=== PATIENT | female | born 1980 | race Caucasian/White ===

== ENCOUNTER 2019-10-13 23:57 | Emergency (ER) | payer BC, OTHER ==
[2019-10-14 00:18] VITALS: TEMP 98.4
--- NOTE | 2019-10-14 00:24 | ED.PDOC ---
History of Present Illness - General Chief Complaint: General Stated Complaint: coughed up blood clot x 1 Time Seen by Provider: 10/14/19 00:13 - History of Present Illness Initial Comments: 39 F no pmh EGA 17wks presents with spouse to ED c/o acute onset tonight of coughing up single blood clot. Pt states she is only concerned due to being . Denies h/o similar sx's. Denies any risk factors for PE/DVT with exce ption of : no h/o PE/DVT, no hormone use, no recent surgery/trauma, no recent long travel, no cancer or blood clotting disorders. Currently denies CP, SOB, f/c, n/v/d. Pt is otherwise healthy with no other signs, symptoms, or complaints. Allergies/Adverse Reactions: Allergies NO KNOWN ALLERGY Allergy (Verified 10/14/19 00:24) Home Medications: Ambulatory Orders Amoxicillin & Pot Clavulanate [Augmentin Tab] 875 mg PO BID #20 tab 10/14/19 Review of Systems - Review of Systems Constitutional: Denies: chills, fever EENTM: States: other - recent epistaxis but denies for past 1-2 days.. Denies: nose congestion, throat pain Respiratory: States: cough. Denies: short of breath, wheezing Cardiology: Denies: chest pain, palpitations, syncope Gastrointestinal/Abdominal: Denies: abdominal pain, diarrhea, nausea, vomiting Genitourinary: Denies: dysuria, frequency, hematuria Musculoskeletal: States: other - denies body aches. Denies: back pain Skin: Denies: change in color, rash Neurological: Denies: headache, tingling Hematologic/Lymphatic: Denies: blood clots Past Medical History (General) - Patient Medical History Hx Seizures: No Hx Stroke: No Hx Dementia: No Hx Asthma: No Hx of COPD: No Hx Cardiac Disorders: No Hx Congestive Heart Failure: No Hx Pacemaker: No Hx Hypertension: No Hx Thyroid Disease: No Hx Diabetes: No Hx Gastroesophageal Reflux: No Hx Renal Disease: No Hx Cancer: No Hx of HIV: No Hx Hepatitis C: No Hx MRSA: No Surgical History: tonsillectomy, other - Vaccination History Hx Tetanus, Diphtheria Vaccination: Yes Hx Influenza Vaccination: No Hx Pneumococcal Vaccination: No Immunizations Up to Date: Yes - Social History Hx Tobacco Use: No Hx Chewing Tobacco Use: No Hx Alcohol Use: No Hx Substance Use: No Hx Substance Use Treatment: No Hx Depression: No Feels Threatened In Home Enviroment: No Feels Threatened In a Relationship: No Hx Physical Abuse: No Hx Emotional Abuse: No Hx Suspected Abuse: No - Female History Patient is a Female of Child Bearing Age (10 -59 yrs old): Yes Patient : Yes - Triage Comment ED Triage Comment: aprox 17 weeks pg Family Medical History - Family History Mother Family History: Unknown Physical Exam - Physical Exam General Appearance: Alert, Comfortable, Well Developed, Well Nourished, Other - non-toxic Eye Exam: bilateral normal, bilateral other - PERRLA, conjunctiva nl, no scleral icterus Neck: full range of motion, supple, normal inspection Respiratory: lungs clear, normal breath sounds, no respiratory distress, no accessory muscle use Cardiovascular/Chest: normal peripheral pulses, regular rate, rhythm, no edema, no gallop, no JVD, no murmur Gastrointestinal/Abdominal: normal bowel sounds, non tender, soft, other - gravid abdomen Extremity: normal inspection, no pedal edema Neurologic: alert, normal mood/affect, oriented x 3 Skin Exam: normal color, warm/dry, other - no rash Progress - Progress Progress: Rodolfo Winters DO [facility] #[id number] Presents for coughing up blood clot with mild concern for bronchitis vs less likely pnuemonia. Low clinical concern for PE. No h/o PE/DVT and no other risk factors with exception to . I will perform labs, imaging, provide appropriate pharmacotherapy, and continue to monitor/reassess. Dispo will depend on lab results, imaging results, and overall course in ED; however, discharge home is expected with f/u, education, and possible rx. 01:35 Rechecked pt with family member at bedside. NAD, VSS, HR in 80's, and pt continues to feel great. I have discussed lab results, radiology results, my clinical impression, and diagnosis. I have also discussed plan for discharge home with f/u Manager Traffic in 1-5 days with calling in the morning, education, and antibiotic prescription I am prescribing. ED return precautions provided. Pt and family member voice understanding, agree with plan, and all questions answered. Pt given single dose of 875mg Augmentin tab PO x1 here in ED prior to d/c home with . - Results/Orders Results/Orders: Laboratory Tests 10/14/19 00:37 D-Dimer, Quantitative 320 EXAM DESCRIPTION: Chest,1 View CLINICAL HISTORY: 39 years Female hemoptysis, shield abdomen 17wks COMPARISON: None TECHNIQUE: AP view of the chest was obtained. FINDINGS: Cardiac size is within normal limits. Central vessels are not increased. Infrahilar airspace opacities bilaterally right greater than left. No effusions bilaterally. No pneumothorax. IMPRESSION: Infiltrate and atelectatic change infrahilar regions bilaterally right greater than left. Electronically signed by: Adrianna Manzo MD 10/14/2019 12:40 AM CDT Departure - Departure Clinical Impression: Second trimester , Pneumonia of mother during , Coughing up blood Time of Disposition: 01:28 Disposition: Discharge to Home or Self Care Condition: Excellent Departure Forms: ED Discharge - Pt. Copy, Patient Portal Self Enrollment Instructions: Pneumonia, Adult (DC), Nutrition Before and During , Medications and Referrals: Your, Manager Traffic [Other] - 1-5 Days (Call in the morning (10/14/2019) to setup close follow up appointment. Return to ED if cough progresses, blood in cough gets worse, you develope chest pain, inablity to keep antibiotic down, fever, and/or any other symptoms concerning to you.) Prescriptions: Amoxicillin & Pot Clavulanate [Augmentin Tab] 875 mg PO BID #20 tab Home Medications: Ambulatory Orders Amoxicillin & Pot Clavulanate [Augmentin Tab] 875 mg PO BID #20 tab 10/14/19 Comments: Rodolfo Winters DO [facility] #[id number]
--- NOTE | 2019-10-14 00:41 | RAD ---
EXAM DESCRIPTION: Chest,1 View CLINICAL HISTORY: 39 years Female hemoptysis, shield abdomen 17wks COMPARISON: None TECHNIQUE: AP view of the chest was obtained. FINDINGS: Cardiac size is within normal limits. Central vessels are not increased. Infrahilar airspace opacities bilaterally right greater than left. No effusions bilaterally. No pneumothorax. IMPRESSION: Infiltrate and atelectatic change infrahilar regions bilaterally right greater than left. Electronically signed by: Adrianna Manzo MD 10/14/2019 12:40 AM CDT
[2019-10-14] MEDS ORDERED: AMOXICILLIN & POT CLAVULANATE 875 MG TAB ONE (01:39)
[2019-10-14] MEDS ORDERED: AMOXICILLIN & POT CLAVULANATE 875 MG TAB PO ONE (01:40)
[2019-10-14 01:46] VITALS: BP 108/68; O2SAT 99
== END 2019-10-14 01:46 | disposition home or self-care (01) ==
LOC: ER 23:57
DX: O99.512 Diseases of the respiratory system complicating pregnancy, second trimester (principal); J18.9 Pneumonia, unspecified organism; R04.2 Hemoptysis; O09.522 Supervision of elderly multigravida, second trimester; Z3A.17 17 weeks gestation of pregnancy

== ENCOUNTER → 2020-04-13 | Outpatient (CLI) | payer OTHER ==
--- NOTE | 2020-04-14 14:06 | MRI ---
EXAM DESCRIPTION: Lumbar Spine w/wo Contrast: Magnetic Resonance Imaging. CLINICAL HISTORY: LOW BACK PAIN COMPARISON: None Available. TECHNIQUE: Multiplanar, MRI, multiple standard sequences, without and with 1 mL per 5 kg body weight, Dotarem Gadolinium IV contrast, lumbar spine. No adverse reactions. FINDINGS: L5-S1: L5-S1 disc space is well identified on T2 axial series 501, image 3. Normal signal in the disc with no bulging and disc space preserved. Minimal degenerative hypertrophy of the left facet joint with posterior ligaments intact. Canal and bilateral foramina are patent. Normal contrast enhancement. L4-L5: Disc space preserved with normal signal in the disc. Degenerative per to the in the posterior flavum ligaments and left facet joint (canal elements). Bilateral Canal and foramina are patent. Normal contrast enhancement. L3-L4: Normal signal in the disc and disc space preserved. Minimal degenerative hypertrophy in the flavum ligaments and left facet joint. Canal and bilateral foramina are patent. No abnormal contrast enhancement. L2-L3: Minimal desiccation of the disc with disc space preserved. Minimal thickening of the posterior flavum ligaments. Mild canal narrowing. Bilateral foramina are patent. Normal contrast enhancement. L1-L2: Normal signal in the disc with disc space preserved. Canal elements unremarkable. Canal and foramina are patent. Conus terminates at this level. Normal contrast enhancement. T12-L1: Normal signal in the disc with disc space preserved. Canal elements are unremarkable. Bilateral foramina and canal are patent. Normal contrast enhancement. Anatomic alignment. Included cord and conus with normal signal, size, and enhancement. Vertebral bodies are not compressed at any level. Normal marrow signal in the vertebral bodies and the posterior elements. Normal Contrast enhancement. Paravertebral soft tissues unremarkable..Perivertebral contrast enhancement normal. IMPRESSION: 1. Multiple levels of bilateral or unilateral mild degenerative hypertrophy of the facet joints and flavum ligaments. Almost all discs showing normal signal with no significant bulging. No canal or neural foraminal significant narrowing or stenosis at any level. 2. Normal contrast enhancement of the disc spaces, canal, foramina, and surrounding soft tissues. 3. Please refer to FINDINGS for discussion of results at individual disc space levels. Electronically signed by: Rai Crane MD 04/14/2020 2:04 PM CDT
== END ==
LOC: MRI 09:28
PROVIDERS: ATTEND Family Medicine
DX: Z01.812 Encounter for preprocedural laboratory examination (principal); M46.96 Unspecified inflammatory spondylopathy, lumbar region; M51.36 Other intervertebral disc degeneration, lumbar region; M24.28 Disorder of ligament, vertebrae